=== PATIENT | female | born 1975 | race Caucasian/White ===

== ENCOUNTER 2016-09-11 23:26 | Inpatient (IN) | payer OTHER ==
[~2016-09-11] VITALS: Ht 152.4 cm; Wt 58.6 kg
[~2016-09-11 23:26] MED LIST: ALENDRONATE SOD10 MG GT; AUGMENTIN80 MG/ML PO; BACTROBAN OINTM22 GM TP; BISAC-EVAC10 MG PR; CACARB500L GT; CALCIUM 500 MG1 EACH GT; CALCIUM CA1250 MG/5 GT; CALCIUM CARB GT; CALCIUM GLUBIONATE 1.8 GM/5 ML IM; CHILDREN'S MOT120 M2 GT; CHLORHEXIDINE473 ML MM; CITROMA296 ML PO; CLEOCIN300 MG GT; CLINDAMYCIN HC300 MG GT; CLINDAMYCIN PHO60 GM TP; COLACE100 MG PO; DEEP SEA; DEPAKENE250 MG/5 M GT; DEPO-PROVER150 MG/ML IM; DIAZEPAM5 MG GT; DOXYCYCLINE HY100 M3 GT; DULCOLAX10 MG PR; Depakene GT; ENULOSE10 GM/15 M GT; ERYTHROMYCIN TP; FLEET ENEMA-AD118 ML GT; FLEET ENEMA-AD118 ML PR; FOSAMAX10 MG GT; GENERLAC10 GM/15 M GT; IBUPROFEN100 MG/5 M GT; IBUPROFEN100 MG/5 M PO; JEVITY 1.2 CAL237 ML GT; JEVITY1000 M1 PO; KEPPRA100 MG/1 M GT; KEPPRA500 MG GT; KEPPRA500 MG PO; LEVOFLOXACIN750 MG GT; MEDROXYPRO150 MG/1 M IM; MULTI-DELYN473 M1 GT; MUPIROCIN22 GM TP; OCEAN NASAL 0.645 ML BOTH NARES; OMNICEF300 MG PO; PAROXETINE HCL10 MG GT; PAXIL10 MG GT; PAXIL2 MG/ML GT; PERIDEX1 ML GT; PERIDEX1 ML MM; PERIDEX1 ML PO; PHILLIPS'400 MG/5 M GT; PREDNISONE1 MG/ML GT; PROVENTIL,2.5 MG/3 M IH; ROBITUSSIN AC,T10 ML GT; ROBITUSSIN COU118 M4 GT; SALINE NASAL SP45 ML BOTH NARES; SENNA8.6 M1 PO; SODIUM CHLORIDE1 G1 GT; TOBRADEX EYE O3.5 GM RIGHT EYE; TUSSIN CF COUG118 ML GT; TUSSIN CF COUG118 ML PO; VALIUM5 MG GT; VALPROIC A250 MG/5 M GT; VITAMIN D31000 UNI2 GT
[2016-09-12 00:01] LABS: EOSINOPHIL (%) 0.3 % (0-5); HEMATOCRIT 39.4 % (36.0-46.0); IMMATURE GRANULOCYTE (%) 0.4 % (0.0-0.7); INSTRUMENT ABS NEUTROPHIL CT 6.2 K/uL; LYMPHOCYTE COUNT 1.4 K/uL (1.0-2.8); MCH 33.3 PG (29.0-34.0); MCHC 33.2 G/DL (30.0-36.0); MCV 100.3 FL (83-99); MEAN PLAT.VOLUME 9.5 uM^3 (9.5-12.4); MONOCYTE (%) 15.2 % (3-12); MONOCYTE COUNT 1.4 K/uL (0-0.8); NEUTROPHIL (%) 68.6 % (45-76); NEUTROPHIL COUNT 6.2 K/uL (1.8-6.4); PLATELET COUNT 228 K/uL (156-360); RBC DIS.WIDTH-CV 14.9 % (11.8-14.6); RBC DIS.WIDTH-SD 55.5 % (39-53); RED BLOOD COUNT 3.93 M/uL (3.80-5.20); WHITE BLOOD COUNT 9.1 K/uL (4.1-10.2)
[2016-09-12 00:17] LABS: CHLORIDE 100 mEq/L (99-109)
[2016-09-12 00:18] LABS: POTASSIUM 4.4 mEq/L (3.7-5.4); SODIUM 133 mEq/L (136-147)
[2016-09-12 00:20] LABS: GLUCOSE 83 mg/dL (70-99)
[2016-09-12 00:21] LABS: ANION GAP 9 MEQ/L (2-14)
[2016-09-12 00:22] LABS: TOTAL BILIRUBIN 0.2 mg/dL (0.0-1.0)
[2016-09-12 00:23] LABS: ALKALINE PHOSPHATASE 80 IU/L (3-129); GFR ESTIMATE (CALCULATED) > 59 mL/min/
[2016-09-12 00:25] LABS: UREA NITROGEN (BUN) 12 mg/dL (9-23)
[2016-09-12 00:26] LABS: TROP-I INTERPRETATION NEGATIVE; TROPONIN-I < 0.01 ng/mL (0.0-0.30)
[2016-09-12 00:27] LABS: LIPASE 28 U/L (1.0-51.0)
[2016-09-12 00:33] LABS: ADD MIUA? YES; BILIRUBIN NEGATIVE; BLOOD NEGATIVE; COLOR YELLOW ((YELLOW)); GLUCOSE (STRIP) NEGATIVE; KETONES NEGATIVE; LEUKOCYTES NEGATIVE; NITRITE NEGATIVE; PROTEIN (STRIP) NEGATIVE; SPECIFIC GRAVITY 1.015 (1.000-1.030); UROBILINOGEN 0.2 MG/DL (0.2-1.0)
[2016-09-12 00:41] LABS: BACTERIA RARE /HPF; EPITHELIAL CELLS NONE SEEN /HPF; MUCUS TRACE /LPF; RED BLOOD CELLS 0-5 /HPF (0-5); UCUL ADDED? NO; WHITE BLOOD CELLS 0-5 /HPF (0-5)
[2016-09-12] MEDS ORDERED: CHLORHEXIDINE473 ML MM (01:34)
[2016-09-12] MEDS ORDERED: CLINDA-BENZOYL35 GM TP (01:34)
[2016-09-12] MEDS ORDERED: MUPIROCIN22 GM TP (01:37)
[2016-09-12] MEDS ORDERED: MICONAZOLE 324 GM VG (01:37)
[2016-09-12] MEDS ORDERED: ALENDRONATE SOD10 MG GT (01:38)
[2016-09-12] MEDS ORDERED: BISAC-EVAC10 MG PR (01:39)
[2016-09-12] MEDS ORDERED: MULTI-DELYN473 M1 GT (01:40)
[2016-09-12] MEDS ORDERED: CLONAZEPAM0.5 MG GT (01:40)
[2016-09-12] MEDS ORDERED: CONSTULOSE10 GM/15 M GT (01:41)
[2016-09-12] MEDS ORDERED: DEPO-PROVER150 MG/ML IM (01:42)
[2016-09-12] MEDS ORDERED: SODIUM CHLORIDE1 G1 GT (01:43)
[2016-09-12] MEDS ORDERED: VALPROIC A250 MG/5 M GT ×2 (01:44→01:47)
[2016-09-12] MEDS ORDERED: VITAMIN D31000 UNI2 GT (01:45)
[2016-09-12] MEDS ORDERED: CACARB500L GT (01:46)
[2016-09-12] MEDS ORDERED: KEPPRA100 MG/1 M GT (01:47)
[2016-09-12] MEDS ORDERED: ALBUTEROL2.5 MG/3 M IH (01:48)
[2016-09-12] MEDS ORDERED: FLEET MINERAL133 ML PR (01:49)
[2016-09-12] MEDS ORDERED: OCEAN NASAL 0.645 ML BOTH NARES (01:49)
[2016-09-12] MEDS ORDERED: DIAZEPAM5 MG GT (01:49)
[2016-09-12] MEDS ORDERED: CHILDREN'S100 MG/51 GT (01:50)
[2016-09-12] MEDS ORDERED: TUSSIN CF COUG118 ML GT (01:50)
[2016-09-12 13:02] VITALS: BP 126/81
[2016-09-12 18:53] LABS: METH RESISTANT S AUREUS PCR NEGATIVE (NEGATIVE); PROBE CHECK PASS; SPECIMEN PROCESSING CONTROL PASS
[2016-09-12 23:28] VITALS: BP 129/72
[2016-09-13 03:30] VITALS: BP 132/77
[2016-09-13 15:10] VITALS: BP 124/60
[2016-09-13 19:00] VITALS: BP 117/68
[2016-09-13 21:50] VITALS: BP 152/74
[2016-09-13 23:14] VITALS: BP 117/75
[2016-09-14] VITALS (7 sets, daily range): BP systolic 98–140; BP diastolic 63–85
[2016-09-14 07:55] LABS: HEMATOCRIT 40.4 % (36.0-46.0); MCH 33.2 PG (29.0-34.0); MCHC 32.4 G/DL (30.0-36.0); MCV 102.3 FL (83-99); MEAN PLAT.VOLUME 9.6 uM^3 (9.5-12.4); PLATELET COUNT 179 K/uL (156-360); RBC DIS.WIDTH-CV 15.7 % (11.8-14.6); RBC DIS.WIDTH-SD 60.4 % (39-53); RED BLOOD COUNT 3.95 M/uL (3.80-5.20); WHITE BLOOD COUNT 10.1 K/uL (4.1-10.2)
[2016-09-14 08:24] LABS: ALKALINE PHOSPHATASE 68 IU/L (3-129); ANION GAP 12 MEQ/L (2-14); CHLORIDE 113 MEQ/L (99-109); GFR ESTIMATE (CALCULATED) > 59 mL/min/; GLUCOSE 89 mg/dL (70-99); POTASSIUM 3.7 MEQ/L (3.7-5.4); SAMPLE HEMOLYSIS CHECK 0; SAMPLE ICTERIC CHECK 0; SAMPLE LIPEMIA CHECK 0; SODIUM 144 MEQ/L (136-147); TOTAL BILIRUBIN 0.4 MG/DL (0.0-1.0); UREA NITROGEN (BUN) 12 mg/dL (9-23)
[2016-09-15 04:00] VITALS: BP 118/67
[2016-09-15 07:30] VITALS: BP 116/71
[2016-09-15 12:04] VITALS: BP 130/74
[2016-09-15 15:52] VITALS: BP 112/73
[2016-09-15 20:43] VITALS: BP 126/63
[2016-09-15 22:46] VITALS: BP 124/70
[2016-09-16 04:25] VITALS: BP 119/67
[2016-09-16 08:00] VITALS: BP 144/72
[2016-09-16 11:00] VITALS: BP 163/80
[2016-09-16 15:30] VITALS: BP 158/74
[2016-09-16 19:28] VITALS: BP 155/77
[2016-09-16 23:33] VITALS: BP 128/68
[2016-09-17 04:03] VITALS: BP 134/78
[2016-09-17 09:10] VITALS: BP 153/73
[2016-09-17 11:43] VITALS: BP 145/88
[2016-09-17 16:32] VITALS: BP 126/68
[2016-09-17 20:11] VITALS: BP 135/92
[2016-09-17 22:37] VITALS: BP 128/60
[2016-09-18 03:25] VITALS: BP 104/57
[2016-09-18 07:07] VITALS: BP 135/70
[2016-09-18 11:48] VITALS: BP 136/87
[2016-09-18 15:41] VITALS: BP 142/69
[2016-09-18 20:40] VITALS: BP 161/73
[2016-09-18 23:38] VITALS: BP 128/63
[2016-09-19 03:31] VITALS: BP 126/91
[2016-09-19 08:00] VITALS: BP 157/82
[2016-09-19 11:52] VITALS: BP 141/83
[2016-09-19 15:00] VITALS: BP 160/71
[2016-09-19 20:40] VITALS: BP 139/63
[2016-09-20] VITALS (7 sets, daily range): BP systolic 127–160; BP diastolic 36–79
[2016-09-20 07:29] LABS: HEMATOCRIT 31.3 % (36.0-46.0); MCH 32.5 PG (29.0-34.0); MCHC 31.3 G/DL (30.0-36.0); MCV 103.6 FL (83-99); MEAN PLAT.VOLUME 9.7 uM^3 (9.5-12.4); NRBC (%) 0.3 /100 WBC (0-0); PLATELET COUNT 144 K/uL (156-360); RBC DIS.WIDTH-CV 17.2 % (11.8-14.6); RBC DIS.WIDTH-SD 66.2 % (39-53); WHITE BLOOD COUNT 9.6 K/uL (4.1-10.2)
[2016-09-20 07:30] LABS: RED BLOOD COUNT 3.02 M/uL (3.80-5.20)
[2016-09-20 08:19] LABS: ALKALINE PHOSPHATASE 49 IU/L (3-129); ANION GAP 8 MEQ/L (2-14); CHLORIDE 127 MEQ/L (99-109); GFR ESTIMATE (CALCULATED) > 59 mL/min/; GLUCOSE 95 mg/dL (70-99); POTASSIUM 3.3 MEQ/L (3.7-5.4); SAMPLE HEMOLYSIS CHECK 0; SAMPLE ICTERIC CHECK 0; SAMPLE LIPEMIA CHECK 0; SODIUM 161 MEQ/L (136-147); TOTAL BILIRUBIN 0.3 MG/DL (0.0-1.0); UREA NITROGEN (BUN) 19 mg/dL (9-23)
[2016-09-21] VITALS (7 sets, daily range): BP systolic 116–166; BP diastolic 65–82
[2016-09-21 09:10] LABS: ANION GAP 5 MEQ/L (2-14); CHLORIDE 123 MEQ/L (99-109); SAMPLE HEMOLYSIS CHECK 0; SAMPLE ICTERIC CHECK 0; SAMPLE LIPEMIA CHECK 0; SODIUM 156 MEQ/L (136-147)
[2016-09-21 09:15] LABS: GFR ESTIMATE (CALCULATED) > 59 mL/min/; GLUCOSE 103 mg/dL (70-99); UREA NITROGEN (BUN) 12 mg/dL (9-23)
[2016-09-22] VITALS (7 sets, daily range): BP systolic 107–166; BP diastolic 62–87
[2016-09-22 06:24] LABS: ANION GAP 7 MEQ/L (2-14); CHLORIDE 114 MEQ/L (99-109); GFR ESTIMATE (CALCULATED) > 59 mL/min/; GLUCOSE 134 mg/dL (70-99); POTASSIUM 4.2 MEQ/L (3.7-5.4); SAMPLE HEMOLYSIS CHECK 0; SAMPLE ICTERIC CHECK 0; SAMPLE LIPEMIA CHECK 0; SODIUM 147 MEQ/L (136-147); UREA NITROGEN (BUN) 11 mg/dL (9-23)
[2016-09-23 04:00] VITALS: BP 139/77
[2016-09-23 07:20] VITALS: BP 125/68
[2016-09-23 11:51] VITALS: BP 119/78
[2016-09-23 15:02] VITALS: BP 114/77
[2016-09-23 19:30] VITALS: BP 93/60
[2016-09-23 23:30] VITALS: BP 130/71
[2016-09-24 03:10] VITALS: BP 121/81
[2016-09-24 07:11] VITALS: BP 135/73
[2016-09-24 08:17] LABS: ANION GAP 8 MEQ/L (2-14); CHLORIDE 103 MEQ/L (99-109); GFR ESTIMATE (CALCULATED) > 59 mL/min/; GLUCOSE 156 mg/dL (70-99); POTASSIUM 3.5 MEQ/L (3.7-5.4); SAMPLE HEMOLYSIS CHECK 0; SAMPLE ICTERIC CHECK 0; SAMPLE LIPEMIA CHECK 0; SODIUM 137 MEQ/L (136-147); UREA NITROGEN (BUN) 14 mg/dL (9-23)
[2016-09-24 12:41] VITALS: BP 141/79
[2016-09-24 16:00] VITALS: BP 141/81
[2016-09-24 20:05] VITALS: BP 110/70
[2016-09-24 23:57] VITALS: BP 139/88
[2016-09-25 04:04] VITALS: BP 130/73
[2016-09-25 08:45] VITALS: BP 144/84
[2016-09-25 08:57] VITALS: BP 144/84
[2016-09-25 11:40] VITALS: BP 134/67
[2016-09-25 15:51] VITALS: BP 122/62
[2016-09-25 19:29] VITALS: BP 99/65
[2016-09-26 00:07] VITALS: BP 137/78
[2016-09-26 03:55] VITALS: BP 111/65
[2016-09-26 08:35] VITALS: BP 122/65
[2016-09-26 11:27] VITALS: BP 121/72
[2016-09-26] MEDS ORDERED: PAROXETINE HCL20 MG PO (12:35)
[2016-09-26 15:08] VITALS: BP 106/56
[2016-09-26 20:03] VITALS: BP 107/58
[2016-09-27 07:37] VITALS: BP 114/71
[2016-09-27 09:32] LABS: ANION GAP 7 MEQ/L (2-14); CHLORIDE 103 MEQ/L (99-109); GFR ESTIMATE (CALCULATED) > 59 mL/min/; GLUCOSE 124 mg/dL (70-99); POTASSIUM 4.1 MEQ/L (3.7-5.4); SAMPLE HEMOLYSIS CHECK 0; SAMPLE ICTERIC CHECK 0; SAMPLE LIPEMIA CHECK 0; SODIUM 135 MEQ/L (136-147); UREA NITROGEN (BUN) 20 mg/dL (9-23)
[2016-09-27 11:58] VITALS: BP 88/58
[2016-09-27] MEDS ORDERED: DUONEB 2.5-0.5 M3 ML AEROSOL (13:13)
[2016-09-27] MEDS ORDERED: METOCLOPRAM5 MG/1 M1 IV (14:56)
== END 2016-09-27 16:58 | disposition short-term general hospital (02) | DRG 871 ==
LOC: EME 23:26 → 4EAST 09-12 01:15 → EDOF 09-12 01:15 → 4EAST 09-12 12:36
PROVIDERS: Emergency Medicine; Internal Medicine
PROC: 02H633Z Insertion of Infusion Device into Right Atrium, Percutaneous Approach (ICD-10-PCS; principal; 2016-09-13)
PROC: 0B9N30Z Drainage of Right Pleura with Drainage Device, Percutaneous Approach (ICD-10-PCS; principal; 2016-09-13)
DX: A41.9 Sepsis, unspecified organism (principal); J96.01 Acute respiratory failure with hypoxia; J69.0 Pneumonitis due to inhalation of food and vomit; J93.9 Pneumothorax, unspecified; E87.0 Hyperosmolality and hypernatremia; E22.2 Syndrome of inappropriate secretion of antidiuretic hormone; F72 Severe intellectual disabilities; G40.909 Epilepsy, unspecified, not intractable, without status epilepticus; G83.9 Paralytic syndrome, unspecified; J45.909 Unspecified asthma, uncomplicated; S41.102A Unspecified open wound of left upper arm, initial encounter; M21.20 Flexion deformity, unspecified site; E87.8 Other disorders of electrolyte and fluid balance, not elsewhere classified; F32.9 Major depressive disorder, single episode, unspecified; J44.9 Chronic obstructive pulmonary disease, unspecified; E88.09 Other disorders of plasma-protein metabolism, not elsewhere classified; D63.8 Anemia in other chronic diseases classified elsewhere; R13.10 Dysphagia, unspecified; E87.6 Hypokalemia; R00.0 Tachycardia, unspecified; K21.9 Gastro-esophageal reflux disease without esophagitis; Z91.048 Other nonmedicinal substance allergy status; Z88.1 Allergy status to other antibiotic agents; Z66 Do not resuscitate; Z93.1 Gastrostomy status; Y92.9 Unspecified place or not applicable
CPT/HCPCS: 31720; 71010; 74000; 74176; 80048; 80053; 80202; 81003; 83605; 83690; 84484; 85025; 85027; 87040; 87641; 94640; 94640 76; 94760; 94799; 99202; 99281; 99285; J1650; J1940; J2270; J2543; J2765; J2920; J2930; J3370; J7050; J7070

== ENCOUNTER 2016-10-24 09:50 | Emergency (ER) | payer OTHER ==
[~2016-10-24] VITALS: Ht 152.4 cm; Wt 58.6 kg
[~2016-10-24 09:50] MED LIST changes: +ALBUTEROL2.5 MG/3 M IH; +CHILDREN'S100 MG/51 GT; +CLINDA-BENZOYL35 GM TP; +CLONAZEPAM0.5 MG GT; +CONSTULOSE10 GM/15 M GT; +DUONEB 2.5-0.5 M3 ML AEROSOL; +FLEET MINERAL133 ML PR; +METOCLOPRAM5 MG/1 M1 IV; +MICONAZOLE 324 GM VG; +PAROXETINE HCL20 MG PO
[2016-10-24 10:33] VITALS: BP 103/59
== END 2016-10-24 10:33 | disposition home or self-care (01) ==
LOC: EME 09:50
DX: Z45.2 Encounter for adjustment and management of vascular access device (principal); F79 Unspecified intellectual disabilities; Z99.3 Dependence on wheelchair; Z88.1 Allergy status to other antibiotic agents; Z91.048 Other nonmedicinal substance allergy status; J45.909 Unspecified asthma, uncomplicated; J44.9 Chronic obstructive pulmonary disease, unspecified; G40.909 Epilepsy, unspecified, not intractable, without status epilepticus; Z93.1 Gastrostomy status; Z87.01 Personal history of pneumonia (recurrent)
CPT/HCPCS: 99281; 99284

== ENCOUNTER 2016-11-30 21:55 | Inpatient (IN) | payer OTHER ==
[~2016-11-30] VITALS: Ht 144.8 cm; Wt 58.3 kg
[2016-11-30 23:45] LABS: ADD MIUA? YES; BILIRUBIN NEGATIVE; BLOOD SMALL; COLOR YELLOW ((YELLOW)); GLUCOSE (STRIP) NEGATIVE; KETONES NEGATIVE; LEUKOCYTES LARGE; NITRITE POSITIVE; PROTEIN (STRIP) 30; UROBILINOGEN 0.2 MG/DL (0.2-1.0)
[2016-12-01 00:13] LABS: BACTERIA 3+ /HPF; CASTS NONE SEEN /LPF; EPITHELIAL CELLS RARE /HPF; MUCUS NONE SEEN /LPF; RED BLOOD CELLS NONE SEEN /HPF (0-5); UCUL ADDED? YES; WHITE BLOOD CELLS TNTC /HPF (0-5)
[2016-12-01 00:14] LABS: CRYSTALS NONE SEEN
[2016-12-01 00:35] LABS: MCH 33.6 PG (29.0-34.0); MCHC 33.4 G/DL (30.0-36.0); MCV 100.6 FL (83-99); MEAN PLAT.VOLUME 9.8 uM^3 (9.5-12.4); PLATELET COUNT 235 K/uL (156-360); RBC DIS.WIDTH-CV 17.4 % (11.8-14.6); RBC DIS.WIDTH-SD 65.1 % (39-53); RED BLOOD COUNT 3.48 M/uL (3.80-5.20); WHITE BLOOD COUNT 14.9 K/uL (4.1-10.2)
[2016-12-01 00:47] LABS: CHLORIDE 106 mEq/L (99-109); SODIUM 135 mEq/L (136-147)
[2016-12-01 00:49] LABS: GLUCOSE 74 mg/dL (70-99)
[2016-12-01 00:50] LABS: ANION GAP 6 MEQ/L (2-14)
[2016-12-01 00:51] LABS: TOTAL BILIRUBIN 0.2 mg/dL (0.0-1.0)
[2016-12-01 00:52] LABS: ALKALINE PHOSPHATASE 98 IU/L (3-129); GFR ESTIMATE (CALCULATED) > 59 mL/min/
[2016-12-01 00:54] LABS: UREA NITROGEN (BUN) 13 mg/dL (9-23)
[2016-12-01 00:56] LABS: LIPASE 14 U/L (1.0-51.0)
[2016-12-01] MEDS ORDERED: PAXIL2 MG/ML GT ×2 (01:49→10:21)
[2016-12-01] MEDS ORDERED: VITAMIN D3400 UNIT/5 GT (01:51)
[2016-12-01] MEDS ORDERED: PROTONIX40 M1 GT (01:52)
[2016-12-01] MEDS ORDERED: FEROSUL220 MG/51 GT ×2 (01:52→10:36)
[2016-12-01] MEDS ORDERED: ROBITUSSIN100 MG/5 M GT (01:56)
[2016-12-01 02:42] LABS: TROP-I INTERPRETATION NEGATIVE; TROPONIN-I < 0.01 ng/mL (0.0-0.30)
[2016-12-01 07:41] LABS: INTERNAL CONTROL VALID? YES
[2016-12-01 08:09] VITALS: BP 174/109
[2016-12-01 08:18] VITALS: BP 99/55
[2016-12-01 09:28] VITALS: BP 140/79
[2016-12-01] MEDS ORDERED: ACETYLCYSTEINE IH (10:08)
[2016-12-01] MEDS ORDERED: OFLOXACIN10 ML LEFT EAR (10:11)
[2016-12-01] MEDS ORDERED: DUONEB 2.5-0.5 M3 ML AEROSOL (10:12)
[2016-12-01] MEDS ORDERED: CERTA VITE9 MG/15 ML GT (10:14)
[2016-12-01] MEDS ORDERED: CLONAZEPAM0.5 MG GT (10:16)
[2016-12-01] MEDS ORDERED: LEVOTHYROXINE50 MCG GT (10:18)
[2016-12-01] MEDS ORDERED: SODIUM CHLORIDE1 G1 GT (10:22)
[2016-12-01] MEDS ORDERED: CALCIUM CARBONATE GT (10:34)
[2016-12-01] MEDS ORDERED: ROBITUSSIN COU118 M4 GT (10:43)
[2016-12-01] MEDS ORDERED: LOPERAMIDE2 M1 GT (10:45)
[2016-12-01 15:28] VITALS: BP 107/55
[2016-12-01 17:35] LABS: INFLUENZA A VIRAL ANTIGEN NEGATIVE; INFLUENZA B VIRAL ANTIGEN NEGATIVE
[2016-12-01 19:55] VITALS: BP 150/66
[2016-12-02 00:08] VITALS: BP 103/59
[2016-12-02 04:41] VITALS: BP 119/59
[2016-12-02 07:36] LABS: EOSINOPHIL (%) 0 % (0-5); IMMATURE GRANULOCYTE (%) 0.2 % (0.0-0.7); INSTRUMENT ABS NEUTROPHIL CT 4.6 K/uL; LYMPHOCYTE COUNT 0.9 K/uL (1.0-2.8); MCH 33.4 PG (29.0-34.0); MCHC 32.8 G/DL (30.0-36.0); MCV 101.9 FL (83-99); MEAN PLAT.VOLUME 10.2 uM^3 (9.5-12.4); MONOCYTE (%) 3.3 % (3-12); MONOCYTE COUNT 0.2 K/uL (0-0.8); NEUTROPHIL (%) 80.4 % (45-76); NEUTROPHIL COUNT 4.6 K/uL (1.8-6.4); PLATELET COUNT 180 K/uL (156-360); RBC DIS.WIDTH-CV 17.6 % (11.8-14.6); RBC DIS.WIDTH-SD 66.8 % (39-53); RED BLOOD COUNT 3.14 M/uL (3.80-5.20); WHITE BLOOD COUNT 5.7 K/uL (4.1-10.2)
[2016-12-02 08:00] VITALS: BP 106/58
[2016-12-02 08:03] LABS: ABS NEUTROPHIL COUNT 4.7; ANISOCYTOSIS 1+; BAND NEUTROPHILS 23.3 % (0-8.0); BASOPHILS 0.9 %; BURR CELLS 1+; EOSINOPHIL ABS CT 0; LYMPHOCYTES 10.3 % (15.0-45.0); MACROCYTES 1+; METAMYELOCYTES 3.4 %; MYELOCYTES 0.9 %; PLAT.SUFFICIENCY ADEQUATE; POIKILOCYTOSIS 3+; SEG.NEUTROPHILS 59.5 % (46.0-76.0); SMUDGE CELLS 11.2
[2016-12-02 09:52] LABS: ANION GAP 9 MEQ/L (2-14); CHLORIDE 107 MEQ/L (99-109); GFR ESTIMATE (CALCULATED) > 59 mL/min/; POTASSIUM 3.7 MEQ/L (3.7-5.4); SAMPLE HEMOLYSIS CHECK 0; SAMPLE ICTERIC CHECK 0; SAMPLE LIPEMIA CHECK 0; SODIUM 135 MEQ/L (136-147); UREA NITROGEN (BUN) 11 mg/dL (9-23)
[2016-12-02 09:53] LABS: GLUCOSE 152 mg/dL (70-99)
[2016-12-02 11:02] VITALS: BP 120/62
[2016-12-02 18:17] VITALS: BP 139/78
[2016-12-02 20:00] VITALS: BP 132/71
[2016-12-03] VITALS: BP 131/62
[2016-12-03 04:00] VITALS: BP 153/76
[2016-12-03 08:00] VITALS: BP 148/70
[2016-12-03 09:52] LABS: HEMATOCRIT 31.5 % (36.0-46.0); MCH 33.1 PG (29.0-34.0); MCV 100.3 FL (83-99); MEAN PLAT.VOLUME 10.4 uM^3 (9.5-12.4); PLATELET COUNT 175 K/uL (156-360); RBC DIS.WIDTH-CV 17.2 % (11.8-14.6); RBC DIS.WIDTH-SD 63.7 % (39-53); RED BLOOD COUNT 3.14 M/uL (3.80-5.20); WHITE BLOOD COUNT 4.3 K/uL (4.1-10.2)
[2016-12-03 10:20] LABS: ANION GAP 9 MEQ/L (2-14); CHLORIDE 105 MEQ/L (99-109); GFR ESTIMATE (CALCULATED) > 59 mL/min/; GLUCOSE 162 mg/dL (70-99); POTASSIUM 3.9 MEQ/L (3.7-5.4); SAMPLE HEMOLYSIS CHECK 0; SAMPLE ICTERIC CHECK 0; SAMPLE LIPEMIA CHECK 0; SODIUM 137 MEQ/L (136-147); UREA NITROGEN (BUN) 16 mg/dL (9-23)
[2016-12-03 10:45] LABS: ABS NEUTROPHIL COUNT 3.1; ANISOCYTOSIS 2+; ATYPICAL LYMPHOCYTE 0.9 %; BAND NEUTROPHILS 34.8 % (0-8.0); EOSINOPHIL ABS CT 0; INSTRUMENT ABS NEUTROPHIL CT 2.9 K/uL; LYMPHOCYTES 15.2 % (15.0-45.0); MACROCYTES 2+; METAMYELOCYTES 0.9 %; PLAT.SUFFICIENCY ADEQUATE
[2016-12-03 10:46] LABS: SEG.NEUTROPHILS 37.5 % (46.0-76.0)
[2016-12-03 11:38] VITALS: BP 128/64
[2016-12-03 19:45] VITALS: BP 160/75
[2016-12-03 23:36] VITALS: BP 156/66
[2016-12-04 04:16] VITALS: BP 166/75
[2016-12-04 08:06] VITALS: BP 158/78
[2016-12-04 08:55] LABS: EOSINOPHIL (%) 0 % (0-5); HEMATOCRIT 31.3 % (36.0-46.0); IMMATURE GRANULOCYTE (%) 0.5 % (0.0-0.7); INSTRUMENT ABS NEUTROPHIL CT 2.8 K/uL; LYMPHOCYTE COUNT 0.7 K/uL (1.0-2.8); MCH 34.5 PG (29.0-34.0); MCHC 34.5 G/DL (30.0-36.0); MEAN PLAT.VOLUME 10.6 uM^3 (9.5-12.4); MONOCYTE (%) 8.5 % (3-12); MONOCYTE COUNT 0.3 K/uL (0-0.8); NEUTROPHIL (%) 72.5 % (45-76); NEUTROPHIL COUNT 2.8 K/uL (1.8-6.4); PLATELET COUNT 166 K/uL (156-360); RBC DIS.WIDTH-CV 17.2 % (11.8-14.6); RBC DIS.WIDTH-SD 63.5 % (39-53); RED BLOOD COUNT 3.13 M/uL (3.80-5.20); WHITE BLOOD COUNT 3.9 K/uL (4.1-10.2)
[2016-12-04 09:11] LABS: AMYLASE 18 IU/L (1-118)
[2016-12-04 09:17] LABS: LIPASE 22 U/L (1.0-51.0)
[2016-12-04 11:51] VITALS: BP 152/74
[2016-12-04 12:00] LABS: ALKALINE PHOSPHATASE 79 IU/L (3-129); ANION GAP 13 MEQ/L (2-14); CHLORIDE 110 MEQ/L (99-109); GFR ESTIMATE (CALCULATED) > 59 mL/min/; GLUCOSE 132 mg/dL (70-99); POTASSIUM 3.8 MEQ/L (3.7-5.4); SAMPLE HEMOLYSIS CHECK 0; SAMPLE ICTERIC CHECK 0; SAMPLE LIPEMIA CHECK 0; SODIUM 140 MEQ/L (136-147); TOTAL BILIRUBIN 0.1 MG/DL (0.0-1.0); UREA NITROGEN (BUN) 22 mg/dL (9-23)
[2016-12-04 16:02] VITALS: BP 160/78
[2016-12-04 19:54] VITALS: BP 133/66
[2016-12-04 23:42] VITALS: BP 140/72
[2016-12-05 08:00] VITALS: BP 154/76
[2016-12-05 16:27] VITALS: BP 150/79
[2016-12-05 20:15] VITALS: BP 176/81
[2016-12-05 21:20] VITALS: BP 154/78
[2016-12-06] VITALS (7 sets, daily range): BP systolic 118–179; BP diastolic 64–86
[2016-12-07] VITALS (7 sets, daily range): BP systolic 124–173; BP diastolic 76–85
[2016-12-08] VITALS (7 sets, daily range): BP systolic 114–152; BP diastolic 40–73
[2016-12-08 09:53] LABS: HEMATOCRIT 33.1 % (36.0-46.0); MCH 33.7 PG (29.0-34.0); MCHC 33.5 G/DL (30.0-36.0); MCV 100.6 FL (83-99); MEAN PLAT.VOLUME 10.1 uM^3 (9.5-12.4); RBC DIS.WIDTH-CV 16.7 % (11.8-14.6); RBC DIS.WIDTH-SD 61.6 % (39-53); RED BLOOD COUNT 3.29 M/uL (3.80-5.20); WHITE BLOOD COUNT 13.2 K/uL (4.1-10.2)
[2016-12-08 09:56] LABS: PLATELET COUNT 281 K/uL (156-360)
[2016-12-08 10:52] LABS: ABS NEUTROPHIL COUNT 7.7; ANISOCYTOSIS 1+; ATYPICAL LYMPHOCYTE 1.8 %; EOSINOPHIL ABS CT 0.4; EOSINOPHILS 2.7 % (0-5.0); HYPOCHROMASIA 1+; INSTRUMENT ABS NEUTROPHIL CT 6.2 K/uL; MACROCYTES 1+; MYELOCYTES 0.9 %; PLAT.SUFFICIENCY ADEQUATE; POLYCHROMASIA 1+; SEG.NEUTROPHILS 58.6 % (46.0-76.0)
[2016-12-08 10:53] LABS: ALKALINE PHOSPHATASE 73 IU/L (3-129); ANION GAP 11 MEQ/L (2-14); CHLORIDE 102 MEQ/L (99-109); GFR ESTIMATE (CALCULATED) > 59 mL/min/; GLUCOSE 78 mg/dL (70-99); POTASSIUM 3.9 MEQ/L (3.7-5.4); SAMPLE HEMOLYSIS CHECK 0; SAMPLE ICTERIC CHECK 0; SAMPLE LIPEMIA CHECK 0; SODIUM 135 MEQ/L (136-147); TOTAL BILIRUBIN 0.1 MG/DL (0.0-1.0); UREA NITROGEN (BUN) 19 mg/dL (9-23)
[2016-12-09 03:57] VITALS: BP 126/78
[2016-12-09 08:40] LABS: HEMATOCRIT 32.7 % (36.0-46.0); MCH 33.8 PG (29.0-34.0); MCHC 34.3 G/DL (30.0-36.0); MCV 98.8 FL (83-99); MEAN PLAT.VOLUME 10.1 uM^3 (9.5-12.4); PLATELET COUNT 343 K/uL (156-360); RBC DIS.WIDTH-CV 16.5 % (11.8-14.6); RBC DIS.WIDTH-SD 58.7 % (39-53); RED BLOOD COUNT 3.31 M/uL (3.80-5.20); WHITE BLOOD COUNT 10.9 K/uL (4.1-10.2)
[2016-12-09 08:58] LABS: ANION GAP 9 MEQ/L (2-14); CHLORIDE 102 MEQ/L (99-109); GFR ESTIMATE (CALCULATED) > 59 mL/min/; GLUCOSE 86 mg/dL (70-99); POTASSIUM 4.3 MEQ/L (3.7-5.4); SAMPLE HEMOLYSIS CHECK 0; SAMPLE ICTERIC CHECK 0; SAMPLE LIPEMIA CHECK 0; SODIUM 134 MEQ/L (136-147); UREA NITROGEN (BUN) 15 mg/dL (9-23)
[2016-12-09 10:00] LABS: ABS NEUTROPHIL COUNT 2.8; ANISOCYTOSIS 2+; ATYPICAL LYMPHOCYTE 3.7 %; EOSINOPHIL ABS CT 0.2; EOSINOPHILS 1.8 % (0-5.0); INSTRUMENT ABS NEUTROPHIL CT 3.8 K/uL; MACROCYTES 2+; METAMYELOCYTES 1.8 %; PLAT.SUFFICIENCY INCREASED; SPHEROCYTES 2+
[2016-12-09 10:04] LABS: BAND NEUTROPHILS 0.9 % (0-8.0); LYMPHOCYTES 50.5 % (15.0-45.0); SEG.NEUTROPHILS 24.8 % (46.0-76.0)
[2016-12-09 11:08] VITALS: BP 118/67
[2016-12-09 17:17] VITALS: BP 109/56
[2016-12-09 20:06] VITALS: BP 101/66
[2016-12-09 23:41] VITALS: BP 100/62
[2016-12-10 03:47] VITALS: BP 115/77
[2016-12-10 08:05] VITALS: BP 98/62
[2016-12-10 13:28] VITALS: BP 111/70
[2016-12-10] MEDS ORDERED: PREDNISONE20 MG GT (13:56)
[2016-12-10 15:50] VITALS: BP 95/66
== END 2016-12-10 17:06 | disposition home or self-care (01) | DRG 689 ==
LOC: EME 21:55 → 3EAST 12-01 03:28 → EDOF 12-01 03:28 → 3EAST 12-01 07:18
PROVIDERS: Emergency Medicine; Hospitalist; Nurse Practitioner Adult Health; Pediatrics; Physician Assistant; Physician Assistant Medical
DX: N30.91 Cystitis, unspecified with hematuria (principal); J96.01 Acute respiratory failure with hypoxia; J69.0 Pneumonitis due to inhalation of food and vomit; F72 Severe intellectual disabilities; F33.9 Major depressive disorder, recurrent, unspecified; R13.10 Dysphagia, unspecified; B96.20 Unspecified Escherichia coli [E. coli] as the cause of diseases classified elsewhere; Z16.12 Extended spectrum beta lactamase (ESBL) resistance; D64.9 Anemia, unspecified; G40.909 Epilepsy, unspecified, not intractable, without status epilepticus; G80.9 Cerebral palsy, unspecified; J44.9 Chronic obstructive pulmonary disease, unspecified; J45.50 Severe persistent asthma, uncomplicated; K21.9 Gastro-esophageal reflux disease without esophagitis; Z16.24 Resistance to multiple antibiotics; Z51.5 Encounter for palliative care; Z66 Do not resuscitate; Z93.1 Gastrostomy status; R00.0 Tachycardia, unspecified; R14.0 Abdominal distension (gaseous); M24.50 Contracture, unspecified joint; R47.01 Aphasia
CPT/HCPCS: 31720; 71010; 74000; 80048; 80053; 80069; 80164; 81003; 82140; 82150; 83605; 83690; 83880; 84484; 85025; 85027; 87040; 87070; 87077; 87086; 87186; 87205; 87449; 87502; 93005; 94640; 94640 76; 94644; 94667; 94668; 94760; 94799; 99202; 99281; 99285; J0456; J0696; J1335; J1650; J2543; J2920; J3360; J3370; J7050; J7120; J7512; J7608

== ENCOUNTER 2017-08-25 13:27 | Inpatient (IN) | payer OTHER ==
[~2017-08-25] VITALS: Ht 142.2 cm; Wt 62.2 kg
[~2017-08-25 13:27] MED LIST changes: +ACETYLCYSTEINE IH; +CERTA VITE9 MG/15 ML GT; +FEROSUL220 MG/51 GT; +LEVOTHYROXINE50 MCG GT; +LOPERAMIDE2 M1 GT; +OFLOXACIN10 ML LEFT EAR; +PREDNISONE20 MG GT; +PROTONIX40 M1 GT; +ROBITUSSIN100 MG/5 M GT; +VITAMIN D3400 UNIT/5 GT
[2017-08-25 14:58] LABS: BASOPHIL (%) 0.2 % (0-1); EOSINOPHIL (%) 1.7 % (0-5); EOSINOPHIL COUNT 0.1 K/uL (0-0.3); HEMATOCRIT 32.7 % (36.0-46.0); HEMOGLOBIN 10.7 G/DL (11.9-15.5); IMMATURE GRANULOCYTE (%) 0.2 % (0.0-0.7); LYMPHOCYTE (%) 21.5 % (15-42); LYMPHOCYTE COUNT 1.4 K/uL (1.0-2.8); MCH 32.8 PG (29.0-34.0); MCHC 32.7 G/DL (30.0-36.0); MONOCYTE (%) 10.2 % (3-12); MONOCYTE COUNT 0.7 K/uL (0-0.8); NEUTROPHIL (%) 66.2 % (45-76); NEUTROPHIL COUNT 4.4 K/uL (1.8-6.4); PLATELET COUNT 193 K/uL (156-360); RBC DIS.WIDTH-CV 16.3 % (11.8-14.6); RED BLOOD COUNT 3.26 M/uL (3.80-5.20); WHITE BLOOD COUNT 6.7 K/uL (4.1-10.2)
[2017-08-25 15:01] LABS: MCV 100.3 FL (83-99)
[2017-08-25 15:04] LABS: INTER. NORMALIZED RATIO 1.3
[2017-08-25 15:18] LABS: PTT 39.4 SEC (25-37)
[2017-08-25 15:23] LABS: TROP-I INTERPRETATION NEGATIVE; TROPONIN-I < 0.01 ng/mL (0.0-0.30)
[2017-08-25 15:44] LABS: CHLORIDE 97 mEq/L (99-109); POTASSIUM 4.1 mEq/L (3.7-5.4); SODIUM 136 mEq/L (136-147)
[2017-08-25 15:46] LABS: GLUCOSE 54 mg/dL (70-99)
[2017-08-25 15:47] LABS: TOTAL PROTEIN 8.1 g/dL (6.4-8.3)
[2017-08-25 15:48] LABS: TOTAL BILIRUBIN 0.3 mg/dL (0.0-1.0)
[2017-08-25] MEDS ORDERED: BENEPROTEIN227 GM GT (15:49)
[2017-08-25 15:50] LABS: ALKALINE PHOSPHATASE 163 IU/L (3-129); CREATININE 0.6 mg/dL (0.6-1.3); GFR ESTIMATE (CALCULATED) > 59 mL/min/
[2017-08-25] MEDS ORDERED: DULCOLAX10 MG PR (15:50)
[2017-08-25 15:51] LABS: UREA NITROGEN (BUN) 21 mg/dL (9-23)
[2017-08-25] MEDS ORDERED: FUROSEMIDE20 MG GT (15:51)
[2017-08-25 15:52] LABS: AST (GOT) 15 IU/L (2-34)
[2017-08-25] MEDS ORDERED: PRILOSEC2.5 MG GT (15:52)
[2017-08-25 15:53] LABS: ALT (GPT) 13 IU/L (3-49); LIPASE 13 U/L (1.0-51.0)
[2017-08-25] MEDS ORDERED: WELLBUTRIN75 MG GT (15:54)
[2017-08-25 18:20] LABS: APPEARANCE CLOUDY ((CLEAR)); BILIRUBIN NEGATIVE; BLOOD MODERATE; COLOR AMBER ((YELLOW)); GLUCOSE (STRIP) NEGATIVE; KETONES 5; LEUKOCYTES LARGE; NITRITE NEGATIVE; PROTEIN (STRIP) 30
[2017-08-25 18:33] LABS: BACTERIA 3+ /HPF; EPITHELIAL CELLS 2+ /HPF; MUCUS NONE SEEN /LPF; RED BLOOD CELLS 0-5 /HPF (0-5); UCUL ADDED? YES; WHITE BLOOD CELLS TNTC /HPF (0-5)
[2017-08-25 20:55] VITALS: BP 123/80
[2017-08-25 23:50] VITALS: BP 121/56
[2017-08-26 05:56] LABS: HEMATOCRIT 29.6 % (36.0-46.0); HEMOGLOBIN 9.3 G/DL (11.9-15.5); MCHC 31.4 G/DL (30.0-36.0); MCV 101.7 FL (83-99); PLATELET COUNT 186 K/uL (156-360); RBC DIS.WIDTH-CV 15.9 % (11.8-14.6); RBC DIS.WIDTH-SD 58.7 % (39-53); RED BLOOD COUNT 2.91 M/uL (3.80-5.20); WHITE BLOOD COUNT 9.3 K/uL (4.1-10.2)
[2017-08-26 06:28] LABS: CHLORIDE 103 MEQ/L (99-109); CREATININE 0.5 MG/DL (0.6-1.3); GFR ESTIMATE (CALCULATED) > 59 mL/min/; POTASSIUM 4.2 MEQ/L (3.7-5.4); SODIUM 139 MEQ/L (136-147); UREA NITROGEN (BUN) 14 mg/dL (9-23)
[2017-08-26 06:36] LABS: GLUCOSE 99 mg/dL (70-99)
[2017-08-26 07:21] VITALS: BP 112/55
[2017-08-26 14:40] LABS: RETIC HGB EQUIVALENT 29.9 (28-36); RETICULOCYTE COUNT 1.8 % (0.5-1.8)
[2017-08-26 15:01] VITALS: BP 138/62
[2017-08-26 15:29] LABS: FOLIC ACID (FOLATE) > 22.0 NG/ML (5.0-22.0)
[2017-08-26 16:08] LABS: IRON 36 MCG/DL (35-150)
[2017-08-27] VITALS: BP 110/53
[2017-08-27 06:23] LABS: HEMOGLOBIN 7.7 G/DL (11.9-15.5); MCH 31.8 PG (29.0-34.0); MCHC 30.8 G/DL (30.0-36.0); MCV 103.3 FL (83-99); PLATELET COUNT 158 K/uL (156-360); RBC DIS.WIDTH-CV 15.9 % (11.8-14.6); RBC DIS.WIDTH-SD 59.3 % (39-53); RED BLOOD COUNT 2.42 M/uL (3.80-5.20); WHITE BLOOD COUNT 5.1 K/uL (4.1-10.2)
[2017-08-27 06:58] LABS: CHLORIDE 106 MEQ/L (99-109); CREATININE 0.4 MG/DL (0.6-1.3); GFR ESTIMATE (CALCULATED) > 59 mL/min/; GLUCOSE 124 mg/dL (70-99); POTASSIUM 3.9 MEQ/L (3.7-5.4); SODIUM 139 MEQ/L (136-147); UREA NITROGEN (BUN) 16 mg/dL (9-23)
[2017-08-27 08:28] VITALS: BP 137/68
[2017-08-27 10:16] LABS: HEMOGLOBIN A1c (GLYCOHEMOGLOB) 4.3 % (Below 5.7)
[2017-08-27 16:22] VITALS: BP 139/67
[2017-08-27 23:58] VITALS: BP 176/76
[2017-08-28 06:59] LABS: BASOPHIL (%) 0.2 % (0-1); EOSINOPHIL (%) 0 % (0-5); HEMATOCRIT 27.4 % (36.0-46.0); HEMOGLOBIN 8.6 G/DL (11.9-15.5); IMMATURE GRANULOCYTE (%) 2.6 % (0.0-0.7); LYMPHOCYTE (%) 18.6 % (15-42); LYMPHOCYTE COUNT 1.2 K/uL (1.0-2.8); MCH 32.7 PG (29.0-34.0); MCHC 31.4 G/DL (30.0-36.0); MCV 104.2 FL (83-99); MONOCYTE (%) 7.4 % (3-12); MONOCYTE COUNT 0.5 K/uL (0-0.8); NEUTROPHIL (%) 71.2 % (45-76); NEUTROPHIL COUNT 4.4 K/uL (1.8-6.4); PLATELET COUNT 188 K/uL (156-360); RBC DIS.WIDTH-CV 16.1 % (11.8-14.6); RBC DIS.WIDTH-SD 60.3 % (39-53); RED BLOOD COUNT 2.63 M/uL (3.80-5.20); WHITE BLOOD COUNT 6.2 K/uL (4.1-10.2)
[2017-08-28 07:27] LABS: CHLORIDE 108 MEQ/L (99-109); CREATININE 0.4 MG/DL (0.6-1.3); GFR ESTIMATE (CALCULATED) > 59 mL/min/; GLUCOSE 124 mg/dL (70-99); POTASSIUM 4.1 MEQ/L (3.7-5.4); SODIUM 141 MEQ/L (136-147); UREA NITROGEN (BUN) 19 mg/dL (9-23)
[2017-08-28 08:09] VITALS: BP 134/85
[2017-08-28 10:38] LABS: STOOL OCCULT BLD 1ST SPECIMEN NEGATIVE
[2017-08-28 16:55] VITALS: BP 142/78
[2017-08-28 23:46] VITALS: BP 141/79
[2017-08-29 06:15] LABS: BASOPHIL (%) 0.8 % (0-1); BASOPHIL COUNT 0.1 K/uL (0-0.1); EOSINOPHIL (%) 0 % (0-5); HEMATOCRIT 36.9 % (36.0-46.0); HEMOGLOBIN 11.8 G/DL (11.9-15.5); IMMATURE GRANULOCYTE (%) 4.9 % (0.0-0.7); LYMPHOCYTE (%) 19.5 % (15-42); LYMPHOCYTE COUNT 1.2 K/uL (1.0-2.8); MCH 33.1 PG (29.0-34.0); MCV 103.7 FL (83-99); MONOCYTE (%) 8.9 % (3-12); MONOCYTE COUNT 0.6 K/uL (0-0.8); NEUTROPHIL (%) 65.9 % (45-76); NEUTROPHIL COUNT 4.1 K/uL (1.8-6.4); NRBC (%) 0.6 /100 WBC (0-0); PLATELET COUNT 183 K/uL (156-360); RBC DIS.WIDTH-CV 16.6 % (11.8-14.6); RBC DIS.WIDTH-SD 62.5 % (39-53); RED BLOOD COUNT 3.56 M/uL (3.80-5.20); WHITE BLOOD COUNT 6.2 K/uL (4.1-10.2)
[2017-08-29 06:36] LABS: CHLORIDE 107 MEQ/L (99-109); CREATININE 0.4 MG/DL (0.6-1.3); GFR ESTIMATE (CALCULATED) > 59 mL/min/; GLUCOSE 113 mg/dL (70-99); MAGNESIUM 1.9 mg/dl (1.3-2.7); POTASSIUM 4.8 MEQ/L (3.7-5.4); SODIUM 138 MEQ/L (136-147); UREA NITROGEN (BUN) 23 mg/dL (9-23)
[2017-08-29 08:00] VITALS: BP 126/60
[2017-08-29 16:27] VITALS: BP 124/62
[2017-08-30 00:19] VITALS: BP 140/71
[2017-08-30 07:23] LABS: HEMATOCRIT 29.5 % (36.0-46.0); MCH 32.3 PG (29.0-34.0); MCHC 31.2 G/DL (30.0-36.0); MCV 103.5 FL (83-99); NRBC (%) 1.2 /100 WBC (0-0); RBC DIS.WIDTH-CV 16.2 % (11.8-14.6); RBC DIS.WIDTH-SD 60.5 % (39-53); RED BLOOD COUNT 2.85 M/uL (3.80-5.20); WHITE BLOOD COUNT 8.6 K/uL (4.1-10.2)
[2017-08-30 07:24] LABS: HEMOGLOBIN 9.2 G/DL (11.9-15.5); PLATELET COUNT 246 K/uL (156-360)
[2017-08-30 07:28] LABS: CHLORIDE 106 MEQ/L (99-109); CREATININE 0.4 MG/DL (0.6-1.3); GFR ESTIMATE (CALCULATED) > 59 mL/min/; GLUCOSE 95 mg/dL (70-99); MAGNESIUM 1.9 mg/dl (1.3-2.7); POTASSIUM 4.9 MEQ/L (3.7-5.4); SODIUM 139 MEQ/L (136-147); UREA NITROGEN (BUN) 23 mg/dL (9-23)
[2017-08-30 07:42] LABS: ABS NEUTROPHIL COUNT 4.9; ANISOCYTOSIS 1+; EOSINOPHIL ABS CT 0; HEMATOLOGY COMMENT 1 SN; LYMPHOCYTES 26.6 % (15.0-45.0); METAMYELOCYTES 0.9 %; MONOCYTES 10.6 % (0-9.0); MYELOCYTES 4.4 %; NUCLEATED RBC'S 2.7; POLYCHROMASIA 1+; SEG.NEUTROPHILS 57.5 % (46.0-76.0); TOX.VACUOLIZATION 2+
[2017-08-30 07:45] VITALS: BP 124/64
[2017-08-30 15:46] VITALS: BP 145/76
[2017-08-31 00:01] VITALS: BP 140/79
[2017-08-31 07:34] VITALS: BP 122/72
[2017-08-31] MEDS ORDERED: PREDNISONE1 MG/ML GT (09:48)
== END 2017-08-31 17:01 | disposition home or self-care (01) | DRG 871 ==
LOC: EME 13:27 → EDOF 19:05 → 5SOUTH 19:05 → ENRESERV 19:06 → 5SOUTH 20:46 → ENPENDDIS 08-31 13:56 → 5SOUTH 08-31 17:01
PROVIDERS: Emergency Medicine; Hospitalist; Internal Medicine; Physician Assistant; Student in an Organized Health Care Education/Training Program
DX: A41.9 Sepsis, unspecified organism (principal); J69.0 Pneumonitis due to inhalation of food and vomit; J96.01 Acute respiratory failure with hypoxia; N39.0 Urinary tract infection, site not specified; J90 Pleural effusion, not elsewhere classified; E16.2 Hypoglycemia, unspecified; J43.9 Emphysema, unspecified; G80.9 Cerebral palsy, unspecified; F79 Unspecified intellectual disabilities; R32 Unspecified urinary incontinence; G40.909 Epilepsy, unspecified, not intractable, without status epilepticus; J98.11 Atelectasis; D63.8 Anemia in other chronic diseases classified elsewhere; K21.9 Gastro-esophageal reflux disease without esophagitis; Z66 Do not resuscitate; B96.20 Unspecified Escherichia coli [E. coli] as the cause of diseases classified elsewhere; Z16.12 Extended spectrum beta lactamase (ESBL) resistance; Z93.1 Gastrostomy status; Z99.3 Dependence on wheelchair; Z79.899 Other long term (current) drug therapy; Z74.01 Bed confinement status
CPT/HCPCS: 71045; 80048; 80053; 80200; 80202; 81003; 82272; 82565; 82607; 82746; 82948; 83036; 83540; 83605; 83690; 83735; 83880; 83880 GA; 84484; 85025; 85027; 85046; 85610; 85730; 87040; 87077; 87086; 87186; 87801; 93005; 93970; 94640; 94640 76; 94760; 94799; 99202; 99281; 99285; C1753; J1650; J2543; J2920; J3260; J3370; J7030; J7050; J7512; J7608; S0028

== ENCOUNTER 2017-09-17 11:45 | Emergency (ER) | payer OTHER ==
[~2017-09-17] VITALS: Ht 142.2 cm; Wt 60.5 kg
[~2017-09-17 11:45] MED LIST changes: +BENEPROTEIN227 GM GT; +FUROSEMIDE20 MG GT; +PRILOSEC2.5 MG GT; +WELLBUTRIN75 MG GT
[2017-09-17 12:40] LABS: BASOPHIL (%) 0.1 % (0-1); EOSINOPHIL COUNT 0.1 K/uL (0-0.3); IMMATURE GRANULOCYTE (%) 0.2 % (0.0-0.7); LYMPHOCYTE (%) 27.6 % (15-42); LYMPHOCYTE COUNT 2.3 K/uL (1.0-2.8); MCH 33.3 PG (29.0-34.0); MCHC 32.2 G/DL (30.0-36.0); MCV 103.4 FL (83-99); MONOCYTE (%) 21.8 % (3-12); MONOCYTE COUNT 1.8 K/uL (0-0.8); NEUTROPHIL (%) 49.3 % (45-76); NEUTROPHIL COUNT 4.1 K/uL (1.8-6.4); PLATELET COUNT 174 K/uL (156-360); RBC DIS.WIDTH-CV 17.2 % (11.8-14.6); RBC DIS.WIDTH-SD 65.6 % (39-53); WHITE BLOOD COUNT 8.4 K/uL (4.1-10.2)
[2017-09-17 12:41] LABS: HEMOGLOBIN 11.6 G/DL (11.9-15.5); RED BLOOD COUNT 3.48 M/uL (3.80-5.20)
[2017-09-17 12:47] LABS: CHLORIDE 104 mEq/L (99-109); POTASSIUM 4.4 mEq/L (3.7-5.4); SODIUM 141 mEq/L (136-147)
[2017-09-17 12:49] LABS: GLUCOSE 58 mg/dL (70-99)
[2017-09-17 12:53] LABS: CREATININE 0.6 mg/dL (0.6-1.3); GFR ESTIMATE (CALCULATED) > 59 mL/min/; UREA NITROGEN (BUN) 15 mg/dL (9-23)
[2017-09-17 13:50] LABS: BASE EXCESS 4.1 mEq/L (-3 to +3); BICARBONATE 29.2 mEq/L (22-26); CARBOXY HGB 2.2 % (0-5); COMMENTS - BLOOD GASES A+C+; DEVICE NC; METHEMOGLOBIN 0.9 % (0-1.5); O2 FLOW 2 L/MIN; PCO2 45 mm Hg (35-45); PO2 83 mm Hg (80-100); SITE RR; TOTAL RESP RATE 14 resp/min; pH 7.42 (7.35-7.45)
[2017-09-17] MEDS ORDERED: CEFTIN250 MG/5 M PO (14:15)
[2017-09-17] MEDS ORDERED: PREDNISOLO15 MG/5 M1 GT (14:49)
[2017-09-17 16:40] VITALS: BP 105/71
== END 2017-09-17 16:41 | disposition home or self-care (01) ==
LOC: EME 11:45
PROVIDERS: Emergency Medicine
DX: J20.9 Acute bronchitis, unspecified (principal); R06.2 Wheezing; F79 Unspecified intellectual disabilities; K21.9 Gastro-esophageal reflux disease without esophagitis; F32.9 Major depressive disorder, single episode, unspecified; J45.909 Unspecified asthma, uncomplicated; G80.9 Cerebral palsy, unspecified; J44.9 Chronic obstructive pulmonary disease, unspecified; Z88.1 Allergy status to other antibiotic agents
CPT/HCPCS: 36600; 71045; 80048; 82803; 83605; 85025; 94640; 99281; 99283

== ENCOUNTER 2017-12-08 21:30 | Inpatient (IN) | payer OTHER ==
[~2017-12-08] VITALS: Ht 152.4 cm; Wt 58.7 kg
[~2017-12-08 21:30] MED LIST changes: +CEFTIN250 MG/5 M PO; +PREDNISOLO15 MG/5 M1 GT
[2017-12-08 23:50] LABS: HEMATOCRIT 32.5 % (36.0-46.0); MCH 34.9 PG (29.0-34.0); MCHC 33.8 G/DL (30.0-36.0); MCV 103.2 FL (83-99); PLATELET COUNT 139 K/uL (156-360); RBC DIS.WIDTH-CV 17.1 % (11.8-14.6); RBC DIS.WIDTH-SD 64.6 % (39-53); RED BLOOD COUNT 3.15 M/uL (3.80-5.20); WHITE BLOOD COUNT 10.2 K/uL (4.1-10.2)
[2017-12-08 23:59] LABS: ALBUMIN 3.6 g/dL (3.2-4.8); CHLORIDE 94 mEq/L (99-109); POTASSIUM 4.2 mEq/L (3.7-5.4); SODIUM 136 mEq/L (136-147)
[2017-12-09 00:01] LABS: GLUCOSE 58 mg/dL (70-99); TOTAL PROTEIN 8.1 g/dL (6.4-8.3)
[2017-12-09 00:03] LABS: TOTAL BILIRUBIN 0.3 mg/dL (0.0-1.0)
[2017-12-09 00:05] LABS: ALKALINE PHOSPHATASE 95 IU/L (3-129); CREATININE 0.6 mg/dL (0.6-1.3); GFR ESTIMATE (CALCULATED) > 59 mL/min/
[2017-12-09 00:06] LABS: UREA NITROGEN (BUN) 13 mg/dL (9-23)
[2017-12-09 00:07] LABS: AST (GOT) 16 IU/L (2-34)
[2017-12-09 00:08] LABS: ALT (GPT) 13 IU/L (3-49); LIPASE 34 U/L (1.0-51.0)
[2017-12-09 01:19] LABS: APPEARANCE CLEAR ((CLEAR)); BILIRUBIN NEGATIVE; BLOOD NEGATIVE; COLOR YELLOW ((YELLOW)); GLUCOSE (STRIP) NEGATIVE; KETONES 20; LEUKOCYTES MODERATE; NITRITE NEGATIVE; PROTEIN (STRIP) NEGATIVE
[2017-12-09 01:24] LABS: BACTERIA 1+ /HPF; EPITHELIAL CELLS RARE /HPF; MUCUS TRACE /LPF; RED BLOOD CELLS 0-5 /HPF (0-5); UCUL ADDED? YES; WHITE BLOOD CELLS 30-40 /HPF (0-5)
[2017-12-09 03:55] LABS: VALPROIC ACID (DEPAKOTE) 100.1 MCG/ML (50-100)
[2017-12-09 05:36] LABS: HEMATOCRIT 30.6 % (36.0-46.0); HEMOGLOBIN 10.1 G/DL (11.9-15.5); MCH 34.1 PG (29.0-34.0); MCV 103.4 FL (83-99); PLATELET COUNT 156 K/uL (156-360); RBC DIS.WIDTH-SD 65.1 % (39-53); RED BLOOD COUNT 2.96 M/uL (3.80-5.20)
[2017-12-09 06:29] LABS: ALBUMIN 3.1 G/DL (3.2-4.8); ALKALINE PHOSPHATASE 74 IU/L (3-129); ALT (GPT) 11 IU/L (3-49); AST (GOT) 16 IU/L (2-34); CHLORIDE 100 MEQ/L (99-109); CREATININE 0.4 MG/DL (0.6-1.3); GFR ESTIMATE (CALCULATED) > 59 mL/min/; POTASSIUM 4.4 MEQ/L (3.7-5.4); SODIUM 139 MEQ/L (136-147); TOTAL BILIRUBIN 0.3 MG/DL (0.0-1.0); TOTAL PROTEIN 6.4 G/DL (6.4-8.3); UREA NITROGEN (BUN) 10 mg/dL (9-23)
[2017-12-09 06:30] LABS: GLUCOSE 47 mg/dL (70-99)
[2017-12-09 06:49] VITALS: BP 116/62
[2017-12-09 06:55] VITALS: BP 82/46
[2017-12-09] MEDS ORDERED: CLEOCIN T30 GM TP (13:44)
[2017-12-09] MEDS ORDERED: MUPIROCIN22 GM TP (13:45)
[2017-12-09] MEDS ORDERED: BENEPROTEIN227 GM PO (13:48)
[2017-12-09] MEDS ORDERED: BISAC-EVAC10 MG PR (13:49)
[2017-12-09] MEDS ORDERED: CERTA VITE9 MG/15 ML PO (13:50)
[2017-12-09] MEDS ORDERED: CERTA VITE9 MG/15 ML GT (13:52)
[2017-12-09] MEDS ORDERED: VALPROIC A250 MG/5 M GT (14:05)
[2017-12-09] MEDS ORDERED: AYR SALINE NA14.1 GM BOTH NARES (14:12)
[2017-12-09] MEDS ORDERED: FLEET MINERAL133 ML PR (14:14)
[2017-12-09] MEDS ORDERED: IBUPROFEN100 MG/52 GT (14:16)
[2017-12-09] MEDS ORDERED: OCEAN NASAL 0.645 ML BOTH NARES (14:19)
[2017-12-09] MEDS ORDERED: DUONEB 2.5-0.5 M3 ML AEROSOL (14:19)
[2017-12-09] MEDS ORDERED: MITRAZOL 2% CRE45 GM TP (14:28)
[2017-12-09] MEDS ORDERED: TUSSIN CHE100 MG/5 M GT (14:29)
[2017-12-09 16:10] VITALS: BP 134/60
[2017-12-09 23:09] VITALS: BP 107/52
[2017-12-10 07:26] LABS: BASOPHIL (%) 0.4 % (0-1); EOSINOPHIL (%) 0.9 % (0-5); HEMATOCRIT 26.9 % (36.0-46.0); HEMOGLOBIN 8.6 G/DL (11.9-15.5); IMMATURE GRANULOCYTE (%) 0.2 % (0.0-0.7); LYMPHOCYTE COUNT 1.7 K/uL (1.0-2.8); MCV 106.3 FL (83-99); MONOCYTE (%) 17.4 % (3-12); MONOCYTE COUNT 0.8 K/uL (0-0.8); NEUTROPHIL (%) 44.1 % (45-76); RBC DIS.WIDTH-CV 17.4 % (11.8-14.6); RBC DIS.WIDTH-SD 68.2 % (39-53); RED BLOOD COUNT 2.53 M/uL (3.80-5.20); WHITE BLOOD COUNT 4.5 K/uL (4.1-10.2)
[2017-12-10 07:42] LABS: PLATELET CLUMPS PRESENT - PLATELET COUNTS APPEARS DECREASED
[2017-12-10 07:43] LABS: PLATELET COUNT UNABLE TO REPORT K/uL (156-360)
[2017-12-10 07:48] LABS: CREATININE 0.4 MG/DL (0.6-1.3); GFR ESTIMATE (CALCULATED) > 59 mL/min/; SODIUM 142 MEQ/L (136-147); UREA NITROGEN (BUN) 8 mg/dL (9-23)
[2017-12-10 07:49] LABS: CHLORIDE 111 MEQ/L (99-109); GLUCOSE 97 mg/dL (70-99); POTASSIUM 3.5 MEQ/L (3.7-5.4)
[2017-12-10 08:36] VITALS: BP 105/54
[2017-12-10 16:54] VITALS: BP 102/51
[2017-12-10 22:29] VITALS: BP 143/86
[2017-12-10 23:38] VITALS: BP 92/54
[2017-12-11 05:58] LABS: BASOPHIL (%) 0.4 % (0-1); EOSINOPHIL COUNT 0.1 K/uL (0-0.3); HEMATOCRIT 28.4 % (36.0-46.0); HEMOGLOBIN 9.1 G/DL (11.9-15.5); IMMATURE GRANULOCYTE (%) 0.3 % (0.0-0.7); LYMPHOCYTE (%) 34.6 % (15-42); LYMPHOCYTE COUNT 2.4 K/uL (1.0-2.8); MCH 34.5 PG (29.0-34.0); MCV 107.6 FL (83-99); MONOCYTE (%) 13.5 % (3-12); MONOCYTE COUNT 0.9 K/uL (0-0.8); NEUTROPHIL (%) 50.2 % (45-76); NEUTROPHIL COUNT 3.4 K/uL (1.8-6.4); RBC DIS.WIDTH-CV 17.5 % (11.8-14.6); RED BLOOD COUNT 2.64 M/uL (3.80-5.20); WHITE BLOOD COUNT 6.9 K/uL (4.1-10.2)
[2017-12-11 06:19] LABS: CHLORIDE 108 MEQ/L (99-109); CREATININE 0.5 MG/DL (0.6-1.3); GFR ESTIMATE (CALCULATED) > 59 mL/min/; GLUCOSE 99 mg/dL (70-99); SODIUM 141 MEQ/L (136-147); UREA NITROGEN (BUN) 7 mg/dL (9-23)
[2017-12-11 06:26] LABS: PLATELET COUNT 137 K/uL (156-360)
[2017-12-11 07:30] VITALS: BP 106/69
[2017-12-11 15:00] VITALS: BP 104/72
[2017-12-12 00:15] VITALS: BP 84/60
[2017-12-12 02:02] VITALS: BP 126/71
[2017-12-12 06:44] LABS: BASOPHIL (%) 0.4 % (0-1); EOSINOPHIL (%) 1.4 % (0-5); EOSINOPHIL COUNT 0.1 K/uL (0-0.3); HEMATOCRIT 26.6 % (36.0-46.0); HEMOGLOBIN 8.7 G/DL (11.9-15.5); IMMATURE GRANULOCYTE (%) 0.6 % (0.0-0.7); LYMPHOCYTE (%) 39.9 % (15-42); LYMPHOCYTE COUNT 3.4 K/uL (1.0-2.8); MCH 33.9 PG (29.0-34.0); MCHC 32.7 G/DL (30.0-36.0); MONOCYTE (%) 9.5 % (3-12); MONOCYTE COUNT 0.8 K/uL (0-0.8); NEUTROPHIL (%) 48.2 % (45-76); NEUTROPHIL COUNT 4.1 K/uL (1.8-6.4); PLATELET COUNT 166 K/uL (156-360); RBC DIS.WIDTH-CV 17.1 % (11.8-14.6); RBC DIS.WIDTH-SD 64.7 % (39-53); RED BLOOD COUNT 2.57 M/uL (3.80-5.20); WHITE BLOOD COUNT 8.4 K/uL (4.1-10.2)
[2017-12-12 06:49] LABS: MCV 103.5 FL (83-99)
[2017-12-12 07:30] VITALS: BP 106/66
[2017-12-12 08:12] LABS: CHLORIDE 110 MEQ/L (99-109); POTASSIUM 3.9 MEQ/L (3.7-5.4); SODIUM 142 MEQ/L (136-147)
[2017-12-12 08:18] LABS: CREATININE 0.3 MG/DL (0.6-1.3); GFR ESTIMATE (CALCULATED) > 59 mL/min/; GLUCOSE 77 mg/dL (70-99); UREA NITROGEN (BUN) 7 mg/dL (9-23)
[2017-12-12 15:30] VITALS: BP 110/60
[2017-12-12 23:18] VITALS: BP 126/78
[2017-12-13 06:14] LABS: BASOPHIL (%) 0.1 % (0-1); EOSINOPHIL (%) 1.6 % (0-5); HEMATOCRIT 28.1 % (36.0-46.0); HEMOGLOBIN 9.2 G/DL (11.9-15.5); IMMATURE GRANULOCYTE (%) 0.4 % (0.0-0.7); LYMPHOCYTE (%) 31.7 % (15-42); LYMPHOCYTE COUNT 3.2 K/uL (1.0-2.8); MCH 34.1 PG (29.0-34.0); MCHC 32.7 G/DL (30.0-36.0); MCV 104.1 FL (83-99); MONOCYTE (%) 11.4 % (3-12); NEUTROPHIL (%) 54.8 % (45-76); PLATELET COUNT 192 K/uL (156-360); RBC DIS.WIDTH-CV 16.9 % (11.8-14.6); RBC DIS.WIDTH-SD 64.5 % (39-53)
[2017-12-13 06:15] LABS: EOSINOPHIL COUNT 0.2 K/uL (0-0.3); MONOCYTE COUNT 1.1 K/uL (0-0.8); NEUTROPHIL COUNT 5.5 K/uL (1.8-6.4)
[2017-12-13 06:42] LABS: CHLORIDE 107 MEQ/L (99-109); CREATININE 0.3 MG/DL (0.6-1.3); GFR ESTIMATE (CALCULATED) > 59 mL/min/; GLUCOSE 77 mg/dL (70-99); POTASSIUM 4.4 MEQ/L (3.7-5.4); SODIUM 142 MEQ/L (136-147); UREA NITROGEN (BUN) 8 mg/dL (9-23)
[2017-12-13 07:12] VITALS: BP 95/58
[2017-12-13 15:55] VITALS: BP 101/60
[2017-12-13 22:57] VITALS: BP 94/57
[2017-12-14 06:35] LABS: HEMATOCRIT 27.7 % (36.0-46.0); HEMOGLOBIN 8.9 G/DL (11.9-15.5); MCH 34.1 PG (29.0-34.0); MCHC 32.1 G/DL (30.0-36.0); MCV 106.1 FL (83-99); PLATELET COUNT 208 K/uL (156-360); RBC DIS.WIDTH-CV 17.2 % (11.8-14.6); RBC DIS.WIDTH-SD 66.4 % (39-53); RED BLOOD COUNT 2.61 M/uL (3.80-5.20); WHITE BLOOD COUNT 7.1 K/uL (4.1-10.2)
[2017-12-14 07:06] LABS: BASOPHIL (%) 0.3 % (0-1); EOSINOPHIL (%) 2.4 % (0-5); EOSINOPHIL COUNT 0.2 K/uL (0-0.3); IMMATURE GRANULOCYTE (%) 0.6 % (0.0-0.7); LYMPHOCYTE (%) 54.3 % (15-42); LYMPHOCYTE COUNT 3.9 K/uL (1.0-2.8); MONOCYTE (%) 10.1 % (3-12); MONOCYTE COUNT 0.7 K/uL (0-0.8); NEUTROPHIL (%) 32.3 % (45-76); NEUTROPHIL COUNT 2.3 K/uL (1.8-6.4)
[2017-12-14 07:09] LABS: CHLORIDE 109 MEQ/L (99-109); CREATININE 0.3 MG/DL (0.6-1.3); GFR ESTIMATE (CALCULATED) > 59 mL/min/; GLUCOSE 81 mg/dL (70-99); POTASSIUM 4.5 MEQ/L (3.7-5.4); SODIUM 144 MEQ/L (136-147); UREA NITROGEN (BUN) 11 mg/dL (9-23)
[2017-12-14 07:25] VITALS: BP 98/51
[2017-12-14 15:05] VITALS: BP 112/63
[2017-12-14 23:58] VITALS: BP 141/63
[2017-12-15 06:27] LABS: HEMOGLOBIN 8.7 G/DL (11.9-15.5); MCH 34.3 PG (29.0-34.0); MCHC 32.2 G/DL (30.0-36.0); MCV 106.3 FL (83-99); RBC DIS.WIDTH-CV 16.9 % (11.8-14.6); RBC DIS.WIDTH-SD 65.1 % (39-53); RED BLOOD COUNT 2.54 M/uL (3.80-5.20); WHITE BLOOD COUNT 9.8 K/uL (4.1-10.2)
[2017-12-15 06:36] LABS: PLATELET COUNT 278 K/uL (156-360)
[2017-12-15 07:05] LABS: ABS NEUTROPHIL COUNT 4.9; ANISOCYTOSIS 1+; ATYPICAL LYMPHOCYTE 6.1 %; BAND NEUTROPHILS 2.6 % (0-8.0); EOSINOPHIL ABS CT 0.2; EOSINOPHILS 1.8 % (0-5.0); LYMPHOCYTES 34.8 % (15.0-45.0); METAMYELOCYTES 1.7 %; MONOCYTES 6.1 % (0-9.0); PLAT.SUFFICIENCY ADEQUATE; POLYCHROMASIA 1+; SEG.NEUTROPHILS 46.9 % (46.0-76.0)
[2017-12-15 07:13] LABS: ALBUMIN 2.8 G/DL (3.2-4.8); ALKALINE PHOSPHATASE 98 IU/L (3-129); ALT (GPT) 15 IU/L (3-49); AST (GOT) 20 IU/L (2-34); CHLORIDE 108 MEQ/L (99-109); CREATININE 0.4 MG/DL (0.6-1.3); GFR ESTIMATE (CALCULATED) > 59 mL/min/; GLUCOSE 92 mg/dL (70-99); POTASSIUM 4.2 MEQ/L (3.7-5.4); SODIUM 143 MEQ/L (136-147); TOTAL BILIRUBIN 0.2 MG/DL (0.0-1.0); TOTAL PROTEIN 6.2 G/DL (6.4-8.3); UREA NITROGEN (BUN) 13 mg/dL (9-23)
[2017-12-15 07:47] VITALS: BP 133/68
[2017-12-15 16:36] VITALS: BP 128/72
[2017-12-16 00:34] VITALS: BP 104/66
[2017-12-16 07:30] VITALS: BP 100/51
[2017-12-16 16:19] VITALS: BP 104/68
[2017-12-17 00:50] VITALS: BP 97/53
[2017-12-17 08:00] VITALS: BP 101/55
[2017-12-17 10:05] LABS: HEMOGLOBIN 9.6 G/DL (11.9-15.5); MCH 34.4 PG (29.0-34.0); MCV 107.5 FL (83-99); NRBC (%) 0.4 /100 WBC (0-0); RBC DIS.WIDTH-CV 16.8 % (11.8-14.6); RBC DIS.WIDTH-SD 64.7 % (39-53); RED BLOOD COUNT 2.79 M/uL (3.80-5.20); WHITE BLOOD COUNT 13.1 K/uL (4.1-10.2)
[2017-12-17 10:09] LABS: PLATELET COUNT 409 K/uL (156-360)
[2017-12-17 10:19] LABS: CHLORIDE 101 MEQ/L (99-109); SODIUM 136 MEQ/L (136-147)
[2017-12-17 10:23] LABS: POTASSIUM 5.5 MEQ/L (3.7-5.4)
[2017-12-17 10:24] LABS: CREATININE 0.4 MG/DL (0.6-1.3); GFR ESTIMATE (CALCULATED) > 59 mL/min/; GLUCOSE 82 mg/dL (70-99); UREA NITROGEN (BUN) 15 mg/dL (9-23)
[2017-12-17 15:34] VITALS: BP 140/65
[2017-12-18 02:12] VITALS: BP 117/56
[2017-12-18 07:30] VITALS: BP 122/67
[2017-12-18 16:13] VITALS: BP 126/67
[2017-12-19 00:16] VITALS: BP 90/53
[2017-12-19 06:30] LABS: BASOPHIL (%) 0.7 % (0-1); BASOPHIL COUNT 0.1 K/uL (0-0.1); EOSINOPHIL COUNT 0.5 K/uL (0-0.3); HEMATOCRIT 30.3 % (36.0-46.0); HEMOGLOBIN 9.7 G/DL (11.9-15.5); IMMATURE GRANULOCYTE (%) 4.2 % (0.0-0.7); LYMPHOCYTE (%) 36.7 % (15-42); LYMPHOCYTE COUNT 3.9 K/uL (1.0-2.8); MCH 34.3 PG (29.0-34.0); MCV 107.1 FL (83-99); MONOCYTE (%) 17.6 % (3-12); MONOCYTE COUNT 1.9 K/uL (0-0.8); NEUTROPHIL (%) 35.8 % (45-76); NEUTROPHIL COUNT 3.8 K/uL (1.8-6.4); NRBC (%) 0.5 /100 WBC (0-0); PLATELET COUNT 473 K/uL (156-360); RBC DIS.WIDTH-CV 17.2 % (11.8-14.6); RBC DIS.WIDTH-SD 65.1 % (39-53); RED BLOOD COUNT 2.83 M/uL (3.80-5.20); WHITE BLOOD COUNT 10.7 K/uL (4.1-10.2)
[2017-12-19 06:49] LABS: CHLORIDE 100 MEQ/L (99-109); CREATININE 0.4 MG/DL (0.6-1.3); GFR ESTIMATE (CALCULATED) > 59 mL/min/; GLUCOSE 62 mg/dL (70-99); POTASSIUM 5.1 MEQ/L (3.7-5.4); SODIUM 137 MEQ/L (136-147); UREA NITROGEN (BUN) 19 mg/dL (9-23)
[2017-12-19 07:29] VITALS: BP 128/70
[2017-12-19 16:23] VITALS: BP 134/76
[2017-12-20 00:57] VITALS: BP 112/56
[2017-12-20 06:18] LABS: BASOPHIL (%) 0.9 % (0-1); BASOPHIL COUNT 0.1 K/uL (0-0.1); EOSINOPHIL (%) 4.3 % (0-5); EOSINOPHIL COUNT 0.4 K/uL (0-0.3); HEMATOCRIT 30.5 % (36.0-46.0); HEMOGLOBIN 9.6 G/DL (11.9-15.5); IMMATURE GRANULOCYTE (%) 1.8 % (0.0-0.7); LYMPHOCYTE (%) 28.7 % (15-42); LYMPHOCYTE COUNT 2.9 K/uL (1.0-2.8); MCH 34.5 PG (29.0-34.0); MCHC 31.5 G/DL (30.0-36.0); MCV 109.7 FL (83-99); MONOCYTE (%) 21.5 % (3-12); MONOCYTE COUNT 2.2 K/uL (0-0.8); NEUTROPHIL (%) 42.8 % (45-76); NEUTROPHIL COUNT 4.4 K/uL (1.8-6.4); NRBC (%) 0.3 /100 WBC (0-0); PLATELET COUNT 458 K/uL (156-360); RBC DIS.WIDTH-CV 17.8 % (11.8-14.6); RBC DIS.WIDTH-SD 69.4 % (39-53); RED BLOOD COUNT 2.78 M/uL (3.80-5.20); WHITE BLOOD COUNT 10.2 K/uL (4.1-10.2)
[2017-12-20 06:52] LABS: CHLORIDE 102 MEQ/L (99-109); CREATININE 0.5 MG/DL (0.6-1.3); GFR ESTIMATE (CALCULATED) > 59 mL/min/; GLUCOSE 77 mg/dL (70-99); POTASSIUM 4.5 MEQ/L (3.7-5.4); SODIUM 139 MEQ/L (136-147); UREA NITROGEN (BUN) 25 mg/dL (9-23)
[2017-12-20 07:40] VITALS: BP 120/74
[2017-12-20 15:15] VITALS: BP 107/55
[2017-12-20 22:39] VITALS: BP 118/84
[2017-12-21 05:58] LABS: BASOPHIL (%) 0.7 % (0-1); BASOPHIL COUNT 0.1 K/uL (0-0.1); EOSINOPHIL COUNT 0.5 K/uL (0-0.3); HEMOGLOBIN 10.1 G/DL (11.9-15.5); IMMATURE GRANULOCYTE (%) 0.8 % (0.0-0.7); LYMPHOCYTE (%) 31.9 % (15-42); LYMPHOCYTE COUNT 3.4 K/uL (1.0-2.8); MCHC 31.6 G/DL (30.0-36.0); MCV 107.7 FL (83-99); MONOCYTE (%) 17.8 % (3-12); MONOCYTE COUNT 1.9 K/uL (0-0.8); NEUTROPHIL (%) 43.8 % (45-76); NEUTROPHIL COUNT 4.7 K/uL (1.8-6.4); PLATELET COUNT 448 K/uL (156-360); RBC DIS.WIDTH-CV 17.3 % (11.8-14.6); RBC DIS.WIDTH-SD 65.7 % (39-53); RED BLOOD COUNT 2.97 M/uL (3.80-5.20); WHITE BLOOD COUNT 10.6 K/uL (4.1-10.2)
[2017-12-21 07:25] VITALS: BP 99/55
[2017-12-21 15:40] VITALS: BP 107/59
[2017-12-21 23:58] VITALS: BP 107/78
[2017-12-22 06:39] LABS: BASOPHIL (%) 0.6 % (0-1); BASOPHIL COUNT 0.1 K/uL (0-0.1); EOSINOPHIL (%) 5.2 % (0-5); EOSINOPHIL COUNT 0.5 K/uL (0-0.3); HEMATOCRIT 30.5 % (36.0-46.0); HEMOGLOBIN 9.5 G/DL (11.9-15.5); IMMATURE GRANULOCYTE (%) 0.4 % (0.0-0.7); LYMPHOCYTE (%) 28.9 % (15-42); LYMPHOCYTE COUNT 2.9 K/uL (1.0-2.8); MCH 33.9 PG (29.0-34.0); MCHC 31.1 G/DL (30.0-36.0); MCV 108.9 FL (83-99); MONOCYTE (%) 18.1 % (3-12); MONOCYTE COUNT 1.8 K/uL (0-0.8); NEUTROPHIL (%) 46.8 % (45-76); NEUTROPHIL COUNT 4.8 K/uL (1.8-6.4); PLATELET COUNT 425 K/uL (156-360); RBC DIS.WIDTH-CV 17.2 % (11.8-14.6); RBC DIS.WIDTH-SD 68.6 % (39-53); WHITE BLOOD COUNT 10.2 K/uL (4.1-10.2)
[2017-12-22 07:03] LABS: CHLORIDE 105 MEQ/L (99-109); CREATININE 0.6 MG/DL (0.6-1.3); GFR ESTIMATE (CALCULATED) > 59 mL/min/; GLUCOSE 83 mg/dL (70-99); POTASSIUM 3.8 MEQ/L (3.7-5.4); SODIUM 144 MEQ/L (136-147); UREA NITROGEN (BUN) 29 mg/dL (9-23)
[2017-12-22 07:30] VITALS: BP 100/70
[2017-12-22] MEDS ORDERED: FUROSEMIDE20 MG GT (09:58)
[2017-12-22 16:13] VITALS: BP 116/82
[2017-12-22 23:26] VITALS: BP 121/60
[2017-12-23 07:40] VITALS: BP 133/58
[2017-12-23 15:05] VITALS: BP 106/66
== END 2017-12-23 16:52 | disposition home or self-care (01) | DRG 871 ==
LOC: EME → EDBD 21:30 → EDOF 12-09 03:43 → 5EAST 12-09 03:43 → ENRESERV 12-09 03:49 → 5EAST 12-09 05:00
PROVIDERS: Emergency Medicine; Internal Medicine; Physician Assistant; Student in an Organized Health Care Education/Training Program
DX: A41.51 Sepsis due to Escherichia coli [E. coli] (principal); N39.0 Urinary tract infection, site not specified; B96.20 Unspecified Escherichia coli [E. coli] as the cause of diseases classified elsewhere; G80.9 Cerebral palsy, unspecified; F79 Unspecified intellectual disabilities; G40.909 Epilepsy, unspecified, not intractable, without status epilepticus; Z93.1 Gastrostomy status; Z99.3 Dependence on wheelchair; J69.0 Pneumonitis due to inhalation of food and vomit; R13.10 Dysphagia, unspecified; K21.9 Gastro-esophageal reflux disease without esophagitis; Z74.01 Bed confinement status; E16.2 Hypoglycemia, unspecified; Z16.12 Extended spectrum beta lactamase (ESBL) resistance; E87.5 Hyperkalemia; E03.9 Hypothyroidism, unspecified; Z66 Do not resuscitate; D64.9 Anemia, unspecified; M24.50 Contracture, unspecified joint; Z16.24 Resistance to multiple antibiotics; Z87.01 Personal history of pneumonia (recurrent); Z87.440 Personal history of urinary (tract) infections; Z99.81 Dependence on supplemental oxygen
CPT/HCPCS: 31720; 71045; 80048; 80053; 80164; 80202; 81003; 82948; 83605; 83690; 83880; 85025; 85027; 87040; 87070; 87077; 87086; 87186; 87205; 87493; 94640; 94640 76; 94760; 94799; 99202; 99281; 99285; J1335; J1644; J1940; J2185; J2543; J3370; J7030; J7040; J7042; J7050; J7120